=== PATIENT | female | born 1995 | race Caucasian/White ===

== ENCOUNTER → 2023-07-10 | Emergency (ER) | payer OTHER ==
[~2023-07-10] MED LIST: KETOROLAC 30 MG/ML INJ ONE
--- OUTSIDE RECORDS SUMMARY | 2023-07-10 16:27 | XMS REPORT | Continuity of Care Document ---
Author Name Unknown Address [address] [facility]. [address] [place] [address] [facility] thconnect Address [address] [facility] [address] [place] [address] Care Team Providers Care Lead Cargo Mover Name Role Phone PCP, PATIENT DOES NOT HAVE A Primary Care Physic edmar Unavailable JASS PARTIDA Attending Clinician Unavailable Jass Partida MD Attending Clinician [phone] Unknown, Attending Attending Clinician Unavailab le UNKNOWN, ATTENDING Attending Clinician Unavailab le Doctor Unassigned, [place] Attending Clinician U navailable Nancy Attending Clinician Unavailable [place] Attending Clinician UnavailMASON Luna Attending Clinician Unavailsteve Parmar LOOP CUTTERFifi Attending Clinician UnaKhalida Caban RN Attending Clinician Un available [facility] Attending Clinician UnaDia Suarez Attending Clinician [phone] DIA DEVRIES Attending Clinician Unavailable KENNETH LLAMAS Attending Clinician Unavailable Ashlyn Bennett MD Attending Clinician [phone] [email or web address] Admitting Clinician Unavailable [place] Admitting Clinician Duran gold Payers Payer Name Policy Type Policy Number Effective Date Expirati on Date Source [employer] [place] [facility] [id number] 2019 00:00:00 [facility] (EPO) [id number] Problems Condition Name Condition Details Condition Category Status Onset Date Resolution Date Last Treatment Date Treating Clinician Comments Source Bacterial pharyngiti s Bacterial pharyngiti s Disease Active 08-11 00:00: 00 [facility] Cough productive of purulent sputum Cough productive of purulent sputum Disease Active 08-11 00:00: 00 [facility] Diarrhea, unspecifie d type Diarrhea, unspecifie d type Disease Active 08-11 00:00: 00 [facility] Nexplanon removal Nexplanon removal Disease Active 11-23 00:00: 00 [facility] Other depression Other depression Disease Active 2016-05 00:00: 00 [facility] Drug induced insomnia Drug induced insomnia Disease Active 2016-05 00:00: 00 [facility] Allergies, Adverse Reactions, Alerts Allergy Name Allergy Type Status Severity Reaction(s) Onset Date Inactive Date Treating Clinician Comments Source iodine DA Active MO HIVES 2021-05 00:00: 00 [facility] codeine DA Active MO HIVES 2021-05 00:00: 00 [facility] CODEINE DRUG INGREDI Active Rash 08-12 00:00: 00 [facility] Codeine Propensi ty to adverse reaction s Active Rash 08-12 00:00: 00 [facility] NO KNOWN ALLERGIE S Drug Class Active [facility] Social History Social Habit Start Date Stop Date Quantity Comments Source Gender identity [facility] Sexual orientation U [facility] Alcohol intake 2023-01-31 00:00:00 2023-01-31 00:00:00 0 /d [facility] History of Social function 2019-08-13 00:00:00 2019-08-13 00:00:00 [facility] Tobacco use and exposure 2016-08-15 00:00:00 2016-08-15 00:00:00 Smokeless tobacco non-user [facility] Sex Assigned At 1995 00:00:00 1995 00:00:00 [facility] Smoking Status Start Date Stop Date Source Never smoked tobacco [facility] Medications Ordered Medication Name Filled Medication Name Start Date Stop Date Current Medication? Ordering Clinician Indication Dosage Frequency Signature (SIG) Comments Components Source ketorolac (TORADOL) injection 30 mg 01-31 19:45: 00 01-31 19:00 :00 No [id number] 30mg [facility] ondansetron (ZOFRAN-ODT ) disintegrat ing tablet 8 mg 01-31 19:45: 00 01-31 19:05 :00 No [id number] 8mg [facility] ondansetron (ZOFRAN-ODT ) disintegrat ing tablet 8 mg 01-31 19:45: 00 01-31 19:05 :00 No [id number] 8mg 8 mg, Oral, ONCE, 1 dose, On Fri01/31/23 at 1445, Routine [facility] ketorolac (TORADOL) injection 30 mg 01-31 19:45: 00 01-31 19:00 :00 No [id number] 30mg 30 mg, Intramuscu lar, ONCE, 1 dose, On Fri01/31/23 at 1445, Routine [facility] dextroamphe tamine-amph etamine (ADDERALL) 15 mg tablet 01-31 13:40: 53 Yes [facility] propranoloL 10 mg tablet 01-31 13:40: 53 Yes [facility] benzonatate (TESSALON PERLES) 100 mg capsule 08-12 00:00: 00 08-27 04:59 :00 No [id number] 100mg Take 1 capsule by mouth 3 (three) times daily for 14 days. [facility] benzonatate (TESSALON PERLES) 100 mg capsule 08-12 00:00: 00 08-27 04:59 :00 No [id number] 100mg Take 1 capsule by mouth 3 (three) times daily for 14 days. [facility] benzonatate (TESSALON PERLES) 100 mg capsule 08-12 00:00: 00 08-27 04:59 :00 No [id number] 100mg Take 1 capsule by mouth 3 (three) times daily for 14 days. [facility] azithromyci n 250 mg tablet 08-11 00:00: 00 Yes [id number] 250mg Take 1 tablet by mouth daily. Take 500 mg day 1, then 250 mg days 2 to 5. [facility] fluticasone propionate 50 mcg/actuati on nasal spray 08-11 00:00: 00 Yes [id number] 1{spray } Use 1 [place] in each nostril daily. [facility] acetaminoph en (TYLENOL 8 HOUR) 650 mg CR tablet 08-11 00:00: 00 Yes [id number] 650mg Take 1 tablet by mouth every 8 (eight) hours as needed for Pain. [facility] predniSONE 5 mg tablet 08-11 00:00: 00 Yes [id number] 5mg Take 1 tablet by mouth daily. [facility] azithromyci n 250 mg tablet 08-11 00:00: 00 Yes [id number] 250mg Take 1 tablet by mouth daily. Take 500 mg day 1, then 250 mg days 2 to 5. [facility] fluticasone propionate 50 mcg/actuati on nasal spray 08-11 00:00: 00 Yes [id number] 1{spray } Use 1 [place] in each nostril daily. [facility] acetaminoph en (TYLENOL 8 HOUR) 650 mg CR tablet 08-11 00:00: 00 Yes [id number] 650mg Take 1 tablet by mouth every 8 (eight) hours as needed for Pain. [facility] predniSONE 5 mg tablet 08-11 00:00: 00 Yes [id number] 5mg Take 1 tablet by mouth daily. [facility] azithromyci n 250 mg tablet 08-11 00:00: 00 Yes [id number] 250mg Take 1 tablet by mouth daily. Take 500 mg day 1, then 250 mg days 2 to 5. [facility] fluticasone propionate 50 mcg/actuati on nasal spray 08-11 00:00: 00 Yes [id number] 1{spray } Use 1 [place] in each nostril daily. [facility] acetaminoph en (TYLENOL 8 HOUR) 650 mg CR tablet 08-11 00:00: 00 Yes [id number] 650mg Take 1 tablet by mouth every 8 (eight) hours as needed for Pain. [facility] predniSONE 5 mg tablet 08-11 00:00: 00 Yes [id number] 5mg Take 1 tablet by mouth daily. [facility] azithromyci n 250 mg tablet 08-11 00:00: 00 Yes [id number] 250mg Take 1 tablet by mouth daily. Take 500 mg day 1, then 250 mg days 2 to 5. [facility] fluticasone propionate 50 mcg/actuati on nasal spray 08-11 00:00: 00 Yes [id number] 1{spray } Use 1 [place] in each nostril daily. [facility] acetaminoph en (TYLENOL 8 HOUR) 650 mg CR tablet 08-11 00:00: 00 Yes [id number] 650mg Take 1 tablet by mouth every 8 (eight) hours as needed for Pain. [facility] predniSONE 5 mg tablet 08-11 00:00: 00 Yes [id number] 5mg Take 1 tablet by mouth daily. [facility] azithromyci n 250 mg tablet 08-11 00:00: 00 Yes [id number] 250mg Take 1 tablet by mouth daily. Take 500 mg day 1, then 250 mg days 2 to 5. [facility] fluticasone propionate 50 mcg/actuati on nasal spray 08-11 00:00: 00 Yes [id number] 1{spray } Use 1 [place] in each nostril daily. [facility] acetaminoph en (TYLENOL 8 HOUR) 650 mg CR tablet 08-11 00:00: 00 Yes [id number] 650mg Take 1 tablet by mouth every 8 (eight) hours as needed for Pain. [facility] predniSONE 5 mg tablet 08-11 00:00: 00 Yes [id number] 5mg Take 1 tablet by mouth daily. [facility] azithromyci n 250 mg tablet 08-11 00:00: 01-31 00:00 :00 No [id number] 250mg Take 1 tablet by mouth daily. Take 500 mg day 1, then 250 mg days 2 to 5. [facility] fluticasone propionate 50 mcg/actuati on nasal spray 08-11 00:00: 00 01-31 00:00 :00 No [id number] 1{spray } Use 1 [place] in each nostril daily. [facility] acetaminoph en (TYLENOL 8 HOUR) 650 mg CR tablet 08-11 00:00: 00 01-31 00:00 :00 No [id number] 650mg Take 1 tablet by mouth every 8 (eight) hours as needed for Pain. [facility] predniSONE 5 mg tablet 08-11 00:00: 00 01-31 00:00 :00 No [id number] 5mg Take 1 tablet by mouth daily. [facility] sennosides (SENNO) 8.6 mg tablet 07-06 00:00: 00 Yes [id number] 8.6mg Take 1 tablet by mouth daily. [facility] Phenyleph-S hark Oil-Glyc-Pe t (HEMORRHOID AL) 0.25-3-12 % Crea 07-06 00:00: 00 Yes [id number] Insert into rectum daily. [facility] dibucaine (HEMORRHOID AL-ANALGESI C) 1 % ointment 07-06 00:00: 00 Yes [id number] Apply to area(s) 3 (three) times daily as needed for Pain. [facility] docusate 100 mg capsule 2020-0 2-18 00:00: 00 Yes [id number] 100mg Take 1 capsule by mouth daily. [facility] sennosides (SENNO) 8.6 mg tablet 2020-0 2-18 00:00: 00 Yes [id number] 8.6mg Take 1 tablet by mouth daily. [facility] Phenyleph-S hark Oil-Glyc-Pe t (HEMORRHOID AL) 0.25-3-12 % Crea 2020-0 2-18 00:00: 00 Yes [id number] Insert into rectum daily. [facility] dibucaine (HEMORRHOID AL-ANALGESI C) 1 % ointment 2020-0 2-18 00:00: 00 Yes [id number] Apply to area(s) 3 (three) times daily as needed for Pain. [facility] docusate 100 mg capsule 2019-0 2-18 00:00: 00 Yes [id number] 100mg Take 1 capsule by mouth daily. [facility] sennosides (SENNO) 8.6 mg tablet 2019-0 218 00:00: 00 Yes [id number] 8.6mg Take 1 tablet by mouth daily. [facility] Phenyleph-S hark Oil-Glyc-Pe t (HEMORRHOID AL) 0.25-3-12 % Crea 2020-0 2-18 00:00: 00 Yes [id number] Insert into rectum daily. [facility] Phenyleph-S hark Oil-Glyc-Pe t (HEMORRHOID AL) 0.25-3-12 % Crea 2020-0 2-18 00:00: 00 Yes [id number] Insert into rectum daily. [facility] dibucaine (HEMORRHOID AL-ANALGESI C) 1 % ointment 2020-0 2-18 00:00: 00 Yes [id number] Apply to area(s) 3 (three) times daily as needed for Pain. [facility] docusate 100 mg capsule 2019-0 2-18 00:00: 00 Yes [id number] 100mg Take 1 capsule by mouth daily. [facility] sennosides (SENNO) 8.6 mg tablet 2020-0 2-18 00:00: 00 Yes [id number] 8.6mg Take 1 tablet by mouth daily. [facility] dibucaine (HEMORRHOID AL-ANALGESI C) 1 % ointment 2020-0 2-18 00:00: 00 Yes [id number] Apply to area(s) 3 (three) times daily as needed for Pain. [facility] docusate 100 mg capsule 2020-0 2-18 00:00: 00 Yes [id number] 100mg Take 1 capsule by mouth daily. [facility] sennosides (SENNO) 8.6 mg tablet 2020-0 2-18 00:00: 00 Yes [id number] 8.6mg Take 1 tablet by mouth daily. [facility] Phenyleph-S hark Oil-Glyc-Pe t (HEMORRHOID AL) 0.25-3-12 % Crea 2020-0 2-18 00:00: 00 Yes [id number] Insert into rectum daily. [facility] dibucaine (HEMORRHOID AL-ANALGESI C) 1 % ointment 2020-0 2-18 00:00: 00 Yes [id number] Apply to area(s) 3 (three) times daily as needed for Pain. [facility] docusate 100 mg capsule 2020-0 2-18 00:00: 00 Yes [id number] 100mg Take 1 capsule by mouth daily. [facility] sennosides (SENNO) 8.6 mg tablet 2020-0 2-18 00:00: 00 Yes [id number] 8.6mg Take 1 tablet by mouth daily. [facility] Phenyleph-S hark Oil-Glyc-Pe t (HEMORRHOID AL) 0.25-3-12 % Crea 2020-0 2-18 00:00: 00 Yes [id number] Insert into rectum daily. [facility] dibucaine (HEMORRHOID AL-ANALGESI C) 1 % ointment 2020-0 2-18 00:00: 00 Yes [id number] Apply to area(s) 3 (three) times daily as needed for Pain. [facility] docusate 100 mg capsule 2020-0 2-18 00:00: 00 Yes [id number] 100mg Take 1 capsule by mouth daily. [facility] sennosides (SENNO) 8.6 mg tablet 2020-0 2-18 00:00: 00 Yes [id number] 8.6mg Take 1 tablet by mouth daily. [facility] Phenyleph-S hark Oil-Glyc-Pe t (HEMORRHOID AL) 0.25-3-12 % Crea 2020-0 2-18 00:00: 00 Yes [id number] Insert into rectum daily. [facility] dibucaine (HEMORRHOID AL-ANALGESI C) 1 % ointment 2020-0 2-18 00:00: 00 Yes [id number] Apply to area(s) 3 (three) times daily as needed for Pain. [facility] docusate 100 mg capsule 2020-0 2-18 00:00: 00 Yes [id number] 100mg Take 1 capsule by mouth daily. [facility] sennosides (SENNO) 8.6 mg tablet 2020-0 2-18 00:00: 00 Yes [id number] 8.6mg Take 1 tablet by mouth daily. [facility] Phenyleph-S hark Oil-Glyc-Pe t (HEMORRHOID AL) 0.25-3-12 % Crea 2020-0 218 00:00: 00 Yes [id number] Insert into rectum daily. [facility] dibucaine (HEMORRHOID AL-ANALGESI C) 1 % ointment 2020-0 2-18 00:00: 00 Yes [id number] Apply to area(s) 3 (three) times daily as needed for Pain. [facility] docusate 100 mg capsule 2020-0 2-18 00:00: 00 Yes [id number] 100mg Take 1 capsule by mouth daily. [facility] Phenyleph-S hark Oil-Glyc-Pe t (HEMORRHOID AL) 0.25-3-12 % Crea 2020-0 2-18 00:00: 00 01-31 00:00 :00 No [id number] Insert into rectum daily. [facility] dibucaine (HEMORRHOID AL-ANALGESI C) 1 % ointment 2020-0 2-18 00:00: 00 01-31 00:00 :00 No [id number] Apply to area(s) 3 (three) times daily as needed for Pain. [facility] docusate 100 mg capsule 07-06 00:00: 00 01-31 00:00 :00 No [id number] 100mg Take 1 capsule by mouth daily. [facility] sennosides (SENNO) 8.6 mg tablet 07-06 00:00: 00 01-31 00:00 :00 No [id number] 8.6mg Take 1 tablet by mouth daily. [facility] traZODONE 50 mg tablet 2016-05 00:00: 00 Yes [id number] 105 50mg Take 1 tablet by mouth at bedtime. [facility] traZODONE 50 mg tablet 2016-05 00:00: 00 Yes [id number] 105 50mg Take 1 tablet by mouth at bedtime. [facility] traZODONE 50 mg tablet 2016-05 00:00: 00 Yes [id number] 105 50mg Take 1 tablet by mouth at bedtime. [facility] traZODONE 50 mg tablet 2016-05 00:00: 00 Yes [id number] 105 50mg Take 1 tablet by mouth at bedtime. [facility] traZODONE 50 mg tablet 2016-05 00:00: 00 Yes [id number] 105 50mg Take 1 tablet by mouth at bedtime. [facility] traZODONE 50 mg tablet 2016-05 00:00: 00 Yes [id number] 105 50mg Take 1 tablet by mouth at bedtime. [facility] traZODONE 50 mg tablet 2016-05 00:00: 00 Yes [id number] 105 50mg Take 1 tablet by mouth at bedtime. [facility] traZODONE 50 mg tablet 2016-05 00:00: 00 Yes [id number] 105 50mg Take 1 tablet by mouth at bedtime. [facility] traZODONE 50 mg tablet 2016-05 00:00: 00 01-31 00:00 :00 No [id number] 105 50mg Take 1 tablet by mouth at bedtime. [facility] BUPROPION SR 100 mg SR tablet 2016-05 00:00: 00 Yes [id number] TAKE 1 TABLET BY MOUTH TWICE A DAY [facility] BUPROPION SR 100 mg SR tablet 2016-05 00:00: 00 Yes [id number] TAKE 1 TABLET BY MOUTH TWICE A DAY [facility] BUPROPION SR 100 mg SR tablet 2016-05 00:00: 00 Yes [id number] TAKE 1 TABLET BY MOUTH TWICE A DAY [facility] BUPROPION SR 100 mg SR tablet 2016-05 00:00: 00 Yes [id number] TAKE 1 TABLET BY MOUTH TWICE A DAY [facility] BUPROPION SR 100 mg SR tablet 2016-05 00:00: 00 Yes [id number] TAKE 1 TABLET BY MOUTH TWICE A DAY [facility] BUPROPION SR 100 mg SR tablet 2016-05 00:00: 00 Yes [id number] TAKE 1 TABLET BY MOUTH TWICE A DAY [facility] BUPROPION SR 100 mg SR tablet 2016-05 00:00: 00 Yes [id number] TAKE 1 TABLET BY MOUTH TWICE A DAY [facility] BUPROPION SR 100 mg SR tablet 2016-05 00:00: 00 Yes [id number] TAKE 1 TABLET BY MOUTH TWICE A DAY [facility] BUPROPION SR 100 mg SR tablet 2016-05 00:00: 00 01-31 00:00 :00 No [id number] TAKE 1 TABLET BY MOUTH TWICE A DAY [facility] hydrOXYzine 10 mg tablet 12-24 00:00: 00 Yes [id number] 10mg Take 1 tablet by mouth every 6 (six) hours. [facility] hydrOXYzine 10 mg tablet 12-24 00:00: 00 Yes [id number] 10mg Take 1 tablet by mouth every 6 (six) hours. [facility] hydrOXYzine 10 mg tablet 12-24 00:00: 00 Yes [id number] 10mg Take 1 tablet by mouth every 6 (six) hours. [facility] hydrOXYzine 10 mg tablet 12-24 00:00: 00 Yes [id number] 10mg Take 1 tablet by mouth every 6 (six) hours. [facility] hydrOXYzine 10 mg tablet 12-24 00:00: 00 Yes [id number] 10mg Take 1 tablet by mouth every 6 (six) hours. [facility] hydrOXYzine 10 mg tablet 12-24 00:00: 00 Yes [id number] 10mg Take 1 tablet by mouth every 6 (six) hours. [facility] hydrOXYzine 10 mg tablet 12-24 00:00: 00 Yes [id number] 10mg Take 1 tablet by mouth every 6 (six) hours. [facility] hydrOXYzine 10 mg tablet 12-24 00:00: 00 Yes [id number] 10mg Take 1 tablet by mouth every 6 (six) hours. [facility] hydrOXYzine 10 mg tablet 12-24 00:00: 00 01-31 00:00 :00 No [id number] 10mg Take 1 tablet by mouth every 6 (six) hours. [facility] albuterol 90 mcg/actuati on inhaler 07-02 00:00: 00 Yes 2{puff} Inhale 2 Puffs every 4 (four) hours as needed for Wheezing or Shortness of Breath. [facility] albuterol 90 mcg/actuati on inhaler 07-02 00:00: 00 Yes 2{puff} Inhale 2 Puffs every 4 (four) hours as needed for Wheezing or Shortness of Breath. [facility] albuterol 90 mcg/actuati on inhaler 07-02 00:00: 00 Yes 2{puff} Inhale 2 Puffs every 4 (four) hours as needed for Wheezing or Shortness of Breath. [facility] albuterol 90 mcg/actuati on inhaler 07-02 00:00: 00 Yes 2{puff} Inhale 2 Puffs every 4 (four) hours as needed for Wheezing or Shortness of Breath. [facility] albuterol 90 mcg/actuati on inhaler 07-02 00:00: 00 Yes 2{puff} Inhale 2 Puffs every 4 (four) hours as needed for Wheezing or Shortness of Breath. [facility] albuterol 90 mcg/actuati on inhaler 07-02 00:00: 00 Yes 2{puff} Inhale 2 Puffs every 4 (four) hours as needed for Wheezing or Shortness of Breath. [facility] albuterol 90 mcg/actuati on inhaler 07-02 00:00: 00 Yes 2{puff} Inhale 2 Puffs every 4 (four) hours as needed for Wheezing or Shortness of Breath. [facility] albuterol 90 mcg/actuati on inhaler 07-02 00:00: 00 Yes 2{puff} Inhale 2 Puffs every 4 (four) hours as needed for Wheezing or Shortness of Breath. [facility] albuterol 90 mcg/actuati on inhaler 07-02 00:00: 00 01-31 00:00 :00 No 2{puff} Inhale 2 Puffs every 4 (four) hours as needed for Wheezing or Shortness of Breath. [facility] hydrocortis one 25 mg suppository 06-20 00:00: 00 Yes 25mg Insert 1 Suppositor y into rectum 2 (two) times daily. [facility] hydrocortis one 25 mg suppository 06-20 00:00: 00 Yes 25mg Insert 1 Suppositor y into rectum 2 (two) times daily. [facility] hydrocortis one 25 mg suppository 06-20 00:00: 00 Yes 25mg Insert 1 Suppositor y into rectum 2 (two) times daily. [facility] cetirizine (ZYRTEC) 5 mg tablet 2015-05 00:00: 00 Yes [id number] 5mg Take 1 tablet by mouth daily. [facility] cetirizine (ZYRTEC) 5 mg tablet 2015-05 00:00: 00 Yes [id number] 5mg Take 1 tablet by mouth daily. [facility] cetirizine (ZYRTEC) 5 mg tablet 2015-05 00:00: 00 Yes [id number] 5mg Take 1 tablet by mouth daily. [facility] cetirizine (ZYRTEC) 5 mg tablet 2015-05 00:00: 00 Yes [id number] 5mg Take 1 tablet by mouth daily. [facility] cetirizine (ZYRTEC) 5 mg tablet 2015-05 00:00: 00 Yes [id number] 5mg Take 1 tablet by mouth daily. [facility] cetirizine (ZYRTEC) 5 mg tablet 2015-05 00:00: 00 Yes [id number] 5mg Take 1 tablet by mouth daily. [facility] cetirizine (ZYRTEC) 5 mg tablet 2015-05 00:00: 00 Yes [id number] 5mg Take 1 tablet by mouth daily. [facility] cetirizine (ZYRTEC) 5 mg tablet 2015-05 00:00: 00 Yes [id number] 5mg Take 1 tablet by mouth daily. [facility] cetirizine (ZYRTEC) 5 mg tablet 2015-05 00:00: 00 01-31 00:00 :00 No [id number] 5mg Take 1 tablet by mouth daily. [facility] Vital Signs Vital Name Observation Time Observation Value Comments S ourlucio Systolic blood pressure 2023-01-31 18:25:00 115 mm[Hg] [facility] Diastolic blood pressure 2023-01-31 18:25:00 80 mm[Hg] [facility] Heart rate 2023-01-31 18:25:00 120 /min [facility] Body temperature 2023-01-31 18:25:00 38.33 [facility] Respiratory rate 2023-01-31 18:25:00 17 /min [facility] Body height 2023-01-31 18:25:00 160 cm [facility] Body weight 2023-01-31 18:25:00 88.361 kg [facility] BMI 2023-01-31 18:25:00 34.51 kg/m2 [facility] Oxygen saturation in Arterial blood by Pulse oximetry 2023-01-31 18:25:00 98 /min [facility] Systolic blood pressure 2019-08-13 15:09:00 132 mm[Hg] [facility] Diastolic blood pressure 2019-08-13 15:09:00 83 mm[Hg] [facility] Heart rate 2019-08-13 15:09:00 91 /min [facility] Body temperature 2019-08-13 15:09:00 37 [facility] Body height 2019-08-13 15:09:00 160 cm [facility] Body weight 2019-08-13 15:09:00 72.122 kg [facility] BMI 2019-08-13 15:09:00 28.17 kg/m2 [facility] Oxygen saturation in Arterial blood by Pulse oximetry 2019-08-13 15:09:00 99 /min [facility] Procedures Procedure Date / Time Performed Performing Clinicia n Source POCT SARS-COV-2 ANTIGEN (BINAX NOW) 2023-01-31 18:27:00 Meli Car [facility] CONSENT/REFUSAL FOR DIAGNOSIS AND TREATMENT 2023-01-31 18:16:30 Doctor Unassigned, [place] [facility] CONSENT/REFUSAL FOR DIAGNOSIS AND TREATMENT 2019-08-13 05:01:00 Doctor Unassigned, [place] [facility] Encounters Start Date/Time End Date/Time Encounter Type Admission Type Attending Clinicians Care Facility Care Department Encounter ID Source 2023-01-31 13:20:00 2023-01-31 14:26:39 Outpatient R JASS PARTIDA [facility] [id number] [facility] 2023-01-31 13:20:00 2023-01-31 13:40:00 Urgent Care Jass Partida Unknown, Attending [facility] [id number] [facility] 2023-01-31 00:00:00 2023-01-31 00:00:00 Orders Only Doctor Unassigned, [place] [facility] 1..114 [id number] [facility] 2023-01-06 00:00:00 2023-01-06 00:00:00 Outpatient GC_GCBZW_Ro man_M [facility] [id number] [facility] 2022-05-02 05:52:00 2022-05-03 11:24:00 Inpatient Alpa Varma [facility].01 [id number] [facility] 2021-10-31 10:00:00 2021-10-31 10:00:00 Outpatient MASON WOLF [facility] [id number] [facility] 2020-09-29 00:00:00 2020-09-29 00:00:00 Case Management Fifi Parmar 1..114 [id number] [facility] 2019-08-15 00:00:00 2019-08-15 00:00:00 Telephone Khalida Cohen [facility] [facility] 1.114 350.1.13.10 4.2.7.2.686 [id number] [facility] 2019-08-13 09:55:22 2019-08-13 10:15:22 Urgent Care Pob1, Acute Care Clinic Dia Devries [facility] Office Building One 1.114 350.1.13.10 4.2.7.2.686 [id number] [facility] 2019-08-13 10:00:00 2019-08-13 10:00:00 Outpatient R DIA DEVRIES [facility] [id number] [facility] 2019-08-13 00:00:00 2019-08-13 00:00:00 Orders Only Doctor Unassigned, [place] [facility] 1.2.840.114 350.1.13.10 4.2.7.2.686 [id number] [facility] 2019-08-12 17:30:00 2019-08-12 17:30:00 Outpatient Tyree KERRINNAREMINGTONKENNETH RAMIREZ [facility] [id number] [facility] 2019-08-12 00:00:00 2019-08-12 00:00:00 Telephone Pob1, Acute Care Clinic [facility] One 1.2.840.114 350.1.13.10 4.2.7.2.686 [id number] [facility] 2019-07-06 00:00:00 2019-07-06 00:00:00 Patient Secure Msg Sabrina Ashlyn Juan [facility] Building 1.2.840.114 350.1.13.10 4.2.7.2.686 [id number] [facility] 2019-07-06 00:00:00 2019-07-06 00:00:00 Patient Secure Msg Doctor Unassigned, [place] [facility] Building 1.2.840.114 350.1.13.10 4.2.7.2.686 [id number] [facility] Results Test Description Test Time Test Comments Results Result Co [facility]41:00* Test Item Value Reference Range Interpretation Comme nts SURGICAL (test code = SR) R UN DATE: 05/06/22 [facility] PAGE 1 RUN TIME: 1740 Specimen Inquiry RUN USER: INTERFACE P ATIENT: VICENTE WATSON LOC: Aiyana U #: [id number] AGE/SX: 27/ ROOM: [facility] RE05/02/22REG DR: Alpa Meadows MD : 97 BED: 1 DIS: 05/03/22 STATUS: DIS Prince TLOC: SPEC #: [id number]:[id number] RECD: 05/02/22 STATUS: MARGUERITE REParveen #: [id number] RADHA: 05/02/221140 [facility] DR: Alpa Meadows MD ENTERED: 05/02/22 SP TYPE: SURGICAL OTHR DR: Tobin Dickson Jr, MD ORDERED: 19683, ANATOMIC SPEC, SPECIMEN TRACK COPIES TO: Tobin Dickson Jr, MD [address] [place] [address] Alpa Meadows MD [address] [facility] [address] [place] [address] PROCEDURES: 91449 (05/06/22-809) SPECIMEN TRACK (05/02/22-1235) TISSUES: A. FALLOPIAN TUBE NOS - RIGHT FINAL DIAGNOSIS Fallopian tube, right, lesion, salpingectomy:- Focal endometriosis- Fallopian tube wall, lumen and fimbriated end identified Comment: Suggest clinical correlation. GROSS DESCRIPTION Right fallopian tube. Received is fallopian tube segment with fimbriated end measuring 4.5cm in length and has a diameter of 1.1 cm. It is surrounded by fibrinous tissue. It issectioned and entirely submitted as A1-A3. Technical tissue processing and slide preparation performed at [facility],[place] [address] , [place] [address] Unless gross only, the diagnosis is based upon microscopic examination.Immunohistochemistr y: This test was developed and its performance characteristicsdetermined by this laboratory. It has not been approved nor does it need approval by the USFDA. Appropriate positive and negative controls are reviewed and judged to be acceptable.This laboratory is certified under the Clinical Laboratory Improvement Amendments (CLIA-88)as qualified to perform high complexity clinical laboratory testing. CONTINUED ON NEXT PAGE R UN DATE: 05/06/22 [facility] PAGE 2 RUN TIME: 1741 Specimen Inquiry RUN USER: INTERFACE S PEC #: 22:[facility]:[id number] PATIENT: VICENTE WATSON #[id number] (Continued) MICROSCOPIC DESCRIPTION Microscopic examination is performed on all specimens and the findings areincorporated into the final diagnosis. Please see diagnosis for findings. -------- Signed SIGNATURE ON ORIN McmillanRicardo 05/06/22 1741 END OF REPORT CBC W/AUTO [id number] 07:08:00* Test Item Value Reference Range Interpretation Comme nts WHITE BLOOD CELL (test code = WBC) 12.7 K/mm3 3.5-11.0 H RED BLOOD CELL (test code = RBC) 4.53 M/mm3 4.70-6.10 L HEMOGLOBIN (test code = HGB) 12.9 G/DL 10.4-14.9 N HEMATOCRIT (test code = HCT) 39.6 % 31.5-44.1 N MEAN CELL VOLUME (test code = MCV) 87.4 Fl 84.5-98.6 N MEAN CELL HGB (test code = MCH) 28.5 pg 27.0-34.2 N MEAN CELL HGB CONCETRATION (test code = MCHC) 32.6 G/DL 31.5-34.0 N RED CELL DISTRIBUTION WIDTH (test code = RDW) 13.2 SD 11.5-14.5 N PLATELET COUNT (test code = PLT) 185 K/mm3 150-450 N MEAN PLATELET VOLUME (test code = MPV) 11.60 fL 7.0-10.5 H NEUTROPHIL % (test code = NT%) 82.4 % 40-76 H IMMATURE GRANULOCYTE % (test code = IG%) 0.4 % 0.0-5.0 N LYMPHOCYTE % (test code = LY%) 10.9 % 20.5-51.1 L MONOCYTE % (test code = MO%) 6.0 % 1.7-9.3 N EOSINOPHIL % (test code = EO%) 0.1 % 0.0-6.0 N BASOPHIL % (test code = BA%) 0.2 % 0.0-2.0 N NUCLEATED RBC % (test code = NRBC%) 0.0 /100WBC% 0.0-1.0 N NEUTROPHIL # (test code = NT#) 10.5 K/mm3 1.8-7.6 H IMMATURE GRANULOCYTE # (test code = IG#) 0.05 x10 3/uL 0.00-0.03 H LYMPHOCYTE # (test code = LY#) 1.4 K/mm3 0.6-3.2 N MONOCYTE # (test code = MO#) 0.8 K/mm3 0.3-1.1 N EOSINOPHIL # (test code = EO#) 0.0 K/mm3 0.0-0.4 N BASOPHIL # (test code = BA#) 0.0 K/mm3 0.0-0.1 N NUCLEATED RBC # (test code = NRBC#) 0.0 K/mm3 0.0-0.1 N MANUAL DIFF REQUIRED (test code = MDIFF) NO DIFF/SCN CRITERIA SLIDE REVIEW CONSISTANT WITH AUTO DIFFERENTIAL. [id number] 06:13:00* Test Item Value Reference Range Interpretation Comme nts CREATININE (test code = CREAT) 0.7 MG/DL 0.6-1.0 N Comment: Stat creatinine if not already performedCOVID 19 INHOUSE [id number] 13:23:00* Test Item Value Reference Range Interpretation Comme nts COVID 19 INHOUSE AG (test code = [id number]) NEGATIVE Negative Per hide and skin fleshing machine operator , negative results should be treated aspresumptive and, if inconsistent with clinical signs andsymptoms or necessary for patient management, should betested with an alternative molecular assay. Negative resultsdo not preclude SARS-CoV-2 infection and should not be usedas the sole basis for patient management decisions. Negative results should be considered in the context of apatient's recent exposures, history, presence of clinicalsigns and symptoms consistent with COVID-19. URINALYSIS [id number] 13:16:00* Test Item Value Reference Range Interpretation Comme nts UA GLUCOSE DIPSTICK (test code = DGLUU) NEGATIVE mg/dL NEG UA BILIRUBIN DIPSTICK (test code = BILU) NEGATIVE mg/dL NEG UA KETONE DIPSTICK (test code = KETU) NEGATIVE mg/dL NEG UA SPECIFIC GRAVITY (test code = SGU) 1.015 SG 1.005-1.030 UA BLOOD DIPSTICK (test code = BEBETO) TRACE mg/DL NEG A UA PH DIPSTICK (test code = HODAN) 7.0 pH UNITS 5.0-7.0 UA PROTEIN DIPSTICK (test code = PROU) NEGATIVE mg/dL NEG UA UROBILINIOGEN DIPSTICK (test code = URO) 0.2 mg/dL <2.0 UA NITRITE DIPSTICK (test code = BARRY) NEGATIVE SCREEN NEG UA LEUKOCYTE ESTERASE DIPSTICK (test code = LEUU) NEGATIVE Leuk/mcL NEGATIVE Urine Specimen Type: Clean CatchUR HCG [id number] 13:16:00* Test Item Value Reference Range Interpretation Comme nts UR HCG QUAL (test code = HCGQLU) NEGATIVE NEGATIVE Urine Specimen Type: Clean Catch- XR CHEST 1 [id number] 13:12:00 [facility] 1995 Sex: F Name:VICENTE WATSONland : 1995 Age/S: 27 / F [address] [address] Unit #: [id number] Loc: [place] [address] Phys: David Mcdermott MD Acct: [id number] Dis Date: Status: PRE SDC PHONE #: [phone] Exam Date: 05/01/2022 1304 FAX #: Reason: PRE OP EXAMS: CPT: [id number] XR CHEST 1 V 08302 Fluoro Time: DAP (Gy m2): Air Kerma (mGy): Location Code: S17 EXAMINATION: - XR CHEST 1 V CLINICAL INDICATION: Female, 27 years year old with preoperative evaluation. COMPARISON: None. FINDINGS: Single view(s) of the chest submitted. Support Devices: None. Heart: Cardiac silhouette is normal in size. Mediastinum: Mediastinal contours are normal. Lungs: Pulmonary vessels are normal in size. Lungs are well aerated and clear. Pleura: No pleural effusion is identified. No pneumothorax is present. Bones: Visualized skeleton is intact. IMPRESSION: No acute cardiopulmonary disease. at 1312 Reported and signed by: Viet Maier M.D. CC: David Mcdermott MD; Alpa Meadows MD PAGE 1 Signed Report Name: [place]ENTE WATSONland : 1995 Age/S: 27 / F [id number] [address] Unit #: [id number] Loc: [place] [address] Phys: David Mcdermott MD Acct: [id number] Dis Date: Status: PRE SDC PHONE #: [phone] Exam Date: 05/01/2022 1303 FAX #: Reason: PRE OP EXAMS: CPT: [id number] XR CHEST 1 V 06376 Fluoro Time: DAP (Gy m2): Air Kerma (mGy): (Continued) Technologist: CAROLINA SUTTON Trnscb Date/Time: 05/01/2022 (1312) [id number] Orig Print D/T: S: 05/01/2022 (1315) PAGE 2 Signed ReportCBC W/AUTO [id number] 13:07:00* Test Item Value Reference Range Interpretation Comme nts WHITE BLOOD CELL (test code = WBC) 7.6 K/mm3 3.5-11.0 N RED BLOOD CELL (test code = RBC) 4.71 M/mm3 4.70-6.10 N HEMOGLOBIN (test code = HGB) 13.4 G/DL 10.4-14.9 N HEMATOCRIT (test code = HCT) 39.8 % 31.5-44.1 N MEAN CELL VOLUME (test code = MCV) 84.5 Fl 84.5-98.6 N MEAN CELL HGB (test code = MCH) 28.5 pg 27.0-34.2 N MEAN CELL HGB CONCETRATION (test code = MCHC) 33.7 G/DL 31.5-34.0 N RED CELL DISTRIBUTION WIDTH (test code = RDW) 13.1 SD 11.5-14.5 N PLATELET COUNT (test code = PLT) 263 K/mm3 150-450 N MEAN PLATELET VOLUME (test c ode = MPV) 11.10 fL 7.0-10.5 H NEUTROPHIL % (test code = NT%) 59.1 % 40-76 N IMMATURE GRANULOCYTE % (test code = IG%) 0.3 % 0.0-5.0 N LYMPHOCYTE % (test code = LY%) 31.3 % 20.5-51.1 N MONOCYTE % (test code = MO%) 7.3 % 1.7-9.3 N EOSINOPHIL % (test code = EO%) 1.7 % 0.0-6.0 N BASOPHIL % (test code = BA%) 0.3 % 0.0-2.0 N NUCLEATED RBC % (test code = NRBC%) 0.0 /100WBC% 0.0-1.0 N NEUTROPHIL # (test code = NT#) 4.5 K/mm3 1.8-7.6 N IMMATURE GRANULOCYTE # (test code = IG#) 0.02 x10 3/uL 0.00-0.03 N LYMPHOCYTE # (test code = LY#) 2.4 K/mm3 0.6-3.2 N MONOCYTE # (test code = MO#) 0.6 K/mm3 0.3-1.1 N EOSINOPHIL # (test code = EO#) 0.1 K/mm3 0.0-0.4 N BASOPHIL # (test code = BA#) 0.0 K/mm3 0.0-0.1 N NUCLEATED RBC # (test code = NRBC#) 0.0 K/mm3 0.0-0.1 N MANUAL DIFF REQUIRED (test c ode = MDIFF) NO DIFF/SCN CRITERIA Notes Date/Time Note Provider Source 2022-05-09 17:00:00 [id number] [id number]/ sVxZj9ZQ9CZDAP9iLcuNi1rnzpy0894-56-61C19:00:66802 2-[address] [address] PATIENT NAME: VICENTE WATSON ADMIT DATE: 05/02/22ACCOUNT NO: [id number] ROOM NO: [facility] AGE: 27 REPORT TYPE: DISCHARGE SUMMARY SEX: F ADMITTING PHYSICIAN: Alpa Meadows MD ATTENDING PHYSICIAN: Alpa Meadows MD ADMISSION DATE: 05/02/2022 05:52:00DISCHARGE DATE: 05/03/2022 11:24:00 ADMITTING DIAGNOSIS: Pelvic pain, dysmenorrhea, abnormal bleeding. POSTOPERATIVE DIAGNOSIS: Pelvic pain, dysmenorrhea, abnormal bleeding and significant intra-abdominal adhesions and same diagnoses. The patient was kept overnight after an extensive lysis of adhesions. Please refer to her operative note on 05/02/2022. She was electively admitted for thisprocedure. She had bilateral chromotubation, right salpingectomy. She had a very superficial monopolar small bowel incident while lysis of adhesions was done and so this was oversewn [facility] Please refer to her consultation note and the operative note for the rest of the details. The patient was sent to the floor on 05/02/2022 postoperatively. On 05/03/2022 in the morning, she was tolerating diet, ambulating, slight blurry vision, which was explained from her scopolamine patch. She was able to empty her bladder and passing flatus, had no urinary symptoms or abdominal distention. On examination, abdomen soft, nondistended, minimally tender, appropriate to herpostoperative day and incisions are clean, dry and intact. The patient was discharged after Dr. Lyle had seen her and consulted with her. This was to establish care, which was started as an intraoperative consultation with her. The patient was given very strict instructions about postoperative complicationsand given the office number to contact at any time of the day and any day of theweek. Narcotic for pain control, ibuprofen for pain control as well restarting home meds. Postoperative followup appointment was also made. She was discharged home after she tolerated her diet and pain was under control. CORRECTED 05/14/2022 [id number] Dictated By: Alpa Meadows MD Date Dictated: 05/09/2022 17:00:45Date Transcribed: 05/09/2022 20:06:17THOMAS/Zack #: [id number] PATIENT NAME: VICENTE WATSON Receipt ID: [id number] by Alpa Meadows MD On 05/16/2022 06:05:51 PM at 0605 PATIENT NAME: VICENTE WATSON nskjwqz0893-47-38Z07:06:00L.[id number] ilable for patient zdleCISVKOZKCQUBGY7817-99-14A57:06:31 [facility] 2022-05-03 09:21:00 [id number] sOgyADmMgKy+IFIWCa/2PT+kj1vD2 1glWu6/nChCwgXyQVFAQysL3En/8877-65-26A04:21:00 [facility] Progress NoteREPORT#:[id number] REPORT STATUS: SignedDATE:05/03/22 TIME:920 PATIENT: VICENTE WATSON UNIT #: [id number]#: [id number] [facility] AGE: 27 SEX: F ATTEND: Alpa Meadows AUTHOR: Viviana Lyle MD * ALL edits or amendments must be made on the electronic/computer document * SubjectivePatient reports:Yes: tolerating diet. No: abdominal pain, nausea, vomiting. Objective GeneralVS/I O:Last Documented: Result Date Time Pulse Ox 100 05/03 0658 B/P 119/74 05/03 0658 B/P Mean 88.7 05/03 06 O2 Delivery Room air 05/03 0658 Temp 98.8 05/03 0658 Pulse 75 05/03 0658 Resp 15 05/03 0658 O2 Flow Rate 4 05/02 1230 Vital Signs Date Temp Pulse Resp B/P B/P Mean Pulse Ox FiO2 05/02-05/03 97.1-98.8 68-95 15-18 109-128/35-75 78.2-88.7 97-100 PATIENT WEIGHT: Weight (lb): 180Weight (oz): 6.04Weight (kg): 81.818 Medications:Active Meds + DC'd Last 24 HrsDocusate Sodium (COLACE) 100 MG BID PO Docusate Sodium (COLACE) 100 MG BID PO (DC) Pregabalin (LYRICA) 75 MG BID PO (DC) Pregabalin (LYRICA) 75 MG BID PO Hydrocodone Bitart/Acetaminophen (NORCO 10/325) 1 TAB ONCE PO (CKD) Ibuprofen (ADVIL) 600 MG Q6H PRN PRN PO Acetaminophen (TYLENOL EXTRA STRENGTH) 1,000 MG PREOP ONCE PO (DC) Celecoxib (CeleBREX) 200 MG PREOP ONCE PO (DC) Gabapentin (NEURONTIN) 200 MG PREOP ONCE PO (DC) Celecoxib (CeleBREX) 200 MG 0900,2100 PO (DC) Acetaminophen (TYLENOL EXTRA STRENGTH) 1,000 MG Q6H PO (DC) Cefoxitin Sodium (MEFOXIN) 1 GM Q8H IV (DC) Sterile Water (WATER FOR INJECTION) 10 MLLactated Ringer's (LACTATED RINGERS) 1,000 ML .[id number] IV Lactated Ringer's (LACTATED RINGERS) 1,000 ML ASDIR IV (DC) Ondansetron HCl (ZOFRAN) 8 MG Q8H PRN PRN PO Ondansetron HCl (ZOFRAN) 8 MG Q8H PRN PRN IV Celecoxib (CeleBREX) 200 MG 0900,2100 PO Lactated Ringer's (LACTATED RINGERS) 1,000 ML ASDIR IV (DC) Ondansetron HCl (ZOFRAN) 8 MG Q8H PRN PRN PO (DC) Ondansetron HCl (ZOFRAN) 8 MG Q8H PRN PRN IV (DC) Acetaminophen (TYLENOL EXTRA STRENGTH) 1,000 MG PREOP ONCE PO (DC) Celecoxib (CeleBREX) 200 MG PREOP ONCE PO (DC) Gabapentin (NEURONTIN) 200 MG PREOP ONCE PO (DC) Scopolamine HBr (TRANSDERM-SCOP) 1.5 MG ONCE TRANSDERM (DC) Hydrocodone Bitart/Acetaminophen (NORCO 5/325) 1 TAB PACU ONCE PRN PO (DC) Hydrocodone Bitart/Acetaminophen (NORCO 10/325) 1 TAB PACU ONCE PRN PO (DC) Hydromorphone HCl (DILAUDID) 0.5 MG PACU Q10MIN PRN PRN IV (DC) Labetalol HCl (TRANDATE) 5 MG PACU Q10MIN PRN PRN IV (DC) Meperidine HCl (DEMEROL) 12.5 MG PACU ONCE PRN IV (DC) Ondansetron HCl (ZOFRAN) 4 MG PACU ONCE PRN IV (DC) Physical ExamGeneral appearance: alert, awake, orientedCardiovascular: normal S1/X2Zunbalsnvfp: clear to auscultationAbdomen: non-tender, normal bowel sounds, soft, no guarding, no rebound, incisions are clean, dry, and intactExtremities: no edema ResultsFindings/Data:Laboratory Tests 05/03/22544:[Embedded Image Not Available]Laboratory Tests 05/03 545 Chemistry Creatinine (0.6 - 1.0 MG/DL) 0.7 Laboratory Tests 05/03 545 Hematology WBC (3.5 - 11.0 K/mm3) 12.7 H RBC (4.70 - 6.10 M/mm3) 4.53 L Hgb (10.4 - 14.9 G/DL) 12.9 Hct (31.5 - 44.1 %) 39.6 MCV (84.5 - 98.6 Fl) 87.4 MCH (27.0 - 34.2 pg) 28.5 MCHC (31.5 - 34.0 G/DL) 32.6 RDW (11.5 - 14.5 SD) 13.2 Plt Count (150 - 450 K/mm3) 185 MPV (7.0 - 10.5 fL) 11.60 H Neut % (Auto) (40 - 76 %) 82.4 H Lymph % (Auto) (20.5 - 51.1 %) 10.9 L [place] % (Auto) (1.7 - 9.3 %) 6.0 Eos % (Auto) (0.0 - 6.0 %) 0.1 Baso % (Auto) (0.0 - 2.0 %) 0.2 Neut # (Auto) (1.8 - 7.6 K/mm3) 10.5 H Lymph # (Auto) (0.6 - 3.2 K/mm3) 1.4 [place] # (Auto) (0.3 - 1.1 K/mm3) 0.8 Eos # (Auto) (0.0 - 0.4 K/mm3) 0.0 Baso # (Auto) (0.0 - 0.1 K/mm3) 0.0 Abs Immat Gran (auto) (0.00 - 0.03 x10 3/uL) 0.05 H Add Manual Diff (CRITERIA DIFF/SCN) NO Immature Gran % (0.0 - 5.0 %) 0.4 Nucleated RBC % (0.0 - 1.0 /100WBC%) 0.0 Diagnosis, Assessment PlanProblem List/A P: 1. Endometriosis 2. Serosal tear of small intestine Free Text A P:Patient doing well postoperatively. She has benign abdominal exam. Discharge plans as per PAPER BOX MAKER. No further general surgical intervention required. Will sign off. at 0924 RPT #: [id number] OF REPORT PRProgress xqus9681-77-33W26:21:00L.CMIB11271134-6092UQMspua able for patient ityiNZMEPPXQJQUTGV7166-49-79P22:24:24 [facility] 2022-05-02 22:40:00 [id number]+5s dvWTm7Tlq+9EJmE8v4hyP08h8Amic N2H8PdGWqeGRae8B0h9mGv285ZP7061-42-42A97:40:74225 6-0009 [facility] [address] [place] [address] PATIENT NAME: VICENTE WATSON ADMIT DATE: 05/02/22ACCOUNT NO: [id number] ROOM NO: [facility] AGE: 27 REPORT TYPE: CONSULTATION SEX: F ADMITTING PHYSICIAN: Alpa Meadows MD ATTENDING PHYSICIAN: Alpa Meadows MD CONSULTATION DATE: 05/02/2022 REASON FOR CONSULTATION: Postoperative evaluation. HISTORY OF PRESENT ILLNESS: The patient is a 27-year-old female who came in forelective gynecological procedure. Dr. Meadows performed a diagnostic hysteroscopy, robotic-assisted laparoscopic lysis of adhesions, right salpingectomy, left salpingolysis and right ovariolysis with chromotubation. During her procedure, she had a superficial serosal tear. She had called duringthe surgery and I advised her surgical management. I recommended that she oversew the area. She had asked me to just follow up with the patient postop. PAST MEDICAL HISTORY: Significant for endometriosis. PAST SURGICAL HISTORY: As above. MEDICATIONS: Reviewed. ALLERGIES: IODINE AND CODEINE. SOCIAL HISTORY: The patient denies any drug, alcohol, or tobacco use. FAMILY HISTORY: Noncontributory. REVIEW OF SYSTEMS: Significant for just postoperative pain. PHYSICAL EXAMINATION:GENERAL: The patient appears in no acute distress.VITAL SIGNS: Show temperature 98.4, pulse 95, respirations 16, blood pressure 117/75.HEENT: Normocephalic. Atraumatic. Extraocular movements intact.CARDIOVASCULAR: S1, S2.LUNGS: Clear to auscultation.ABDOMEN: Soft, nondistended, nontender. Incisions are clean, dry and intact. No active bleeding.EXTREMITIES: No edema, clubbing, cyanosis. IMPRESSION:1. Denuded small bowel.2. Endometriosis.3. Status post gynecologic procedure. PATIENT NAME: VICENTE WATSON PLAN: The patient clinically appears to have benign abdomen. She is resting comfortably in bed with no evidence of acute surgical abdomen. Continue supportive care as per PAPER BOX [employer]KER. Dictated By: Viviana Lyle MD Date Dictated: 05/02/2022 22:40:03Date Transcribed: 05/03/2022 05:35:13EO/Joel #: [id number] ID: [id number] by Viviana Lyle MD On 05/21/2022 10:30:34 AM at 1030 PATIENT NAME: VICENTE WATSON :35:00L.WA [id number] for patient wotiICMSCKSXARIGNG4435-08-92A18:31:11 [facility] 2022-05-02 15:28:00 [id number] bZ5pQ84epzOytuEtTEx0OhiirbMXd +h82RflIOjBvrdWI3PF6ZNdPiR42797-09-02H90:28:46170 6-0005 [facility] [address] [place] [address] PATIENT NAME: VICENTE WATSON ADMIT DATE: 05/02/22ACCOUNT NO: [id number] ROOM NO: L.S212 AGE: 27 REPORT TYPE: OPERATIVE REPORT SEX: F ADMITTING PHYSICIAN: Alpa Meadows MD ATTENDING PHYSICIAN: Alpa Meadows MD OPERATION DATE: 05/02/2022 PREOPERATIVE DIAGNOSES: Pelvic pain and irregular periods. POSTOPERATIVE DIAGNOSES: Pelvic pain and irregular periods. Bilateralhydrosalpinges, significant large and small bowel adhesions, appendiceal andcecal adhesions as well as bilateral tubo-ovarian adhesions to the sidewall. PROCEDURE PERFORMED:1. Diagnostic hysteroscopy.2. Diagnostic robotic-assisted laparoscopy.3. Extensive lysis of small and large bowel adhesions which took at least minutes, omental adhesions as well.4. Right salpingectomy.5. Left salpingolysis.6. Right ovariolysis.7. Chromotubation. SURGEON: Alpa Meadows MD. WELLNESS INSTRUCTOR: Jeremi Padilla. ANESTHESIA: FINDINGS: Serosal small bowel injury that was repaired from lysis of adhesions.Bilateral hydrosalpinges were noted and the left was drained as the tube wasoccluded after chromotubation. Once it was open, the tube was able to beflushed; however, it was distorted and significantly adhered in the rightlateral sidewall and the adhesions between the uteroovarian ligament and theround ligament. Then, the uterus appeared to be normal on hysteroscopy.Ovaries remained intact. The appendix was adhered on the posterior broadligament, scarred down in the pelvis just right above the uterosacral ligament.Cecum was adhered to the right lateral pelvic sidewall all the way from thelevel of the pelvic brim to the level of the appendix and the posterior broadligament near the uterosacral. This was noted. Perihepatic adhesions were alsopresent from the omentum to the anterior abdominal wall. Essentially, adhesionsstarted at the perihepatic level of the upper abdomen and all the way down intothe pelvis. The sigmoid colon was adhered to the posterior wall of the uterus.Cul-de-sac obliterated. COMPLICATIONS: Superficial serosal injury of the small bowel oversewn with a 3-0Vicryl after consultation with general surgeon. PATIENT NAME: VICENTE WATSON ESTIMATED BLOOD LOSS: Minimal. SPECIMENS: Right tube. URINE OUTPUT: 100. APPROACH: Robotic laparoscopic. WOUND CLASS: Clean. ANTIBIOTICS: 2 grams of Ancef were given at the beginning of the case. COUNTS: Correct. INDICATIONS FOR OPERATION: The patient is a 27-year-old 1, para 1, oneC-section that was an emergency due to shoulder dystocia. Postoperative coursecomplicated and protracted with multiple abdominal abscesses that had to bedrained laparoscopically. The patient has been treated conservatively for herpain. There is a suspicion of endometriosis or adhesions and so she was offeredthe option of medical treatment versus surgical diagnostic. She also isdesiring fertility in the future, so we discussed about chromotubation patency of the tubes. After she was here in the preoperative area, we discussed about all her findings of adnexal masses over the past one and a half year. Shecompletely understands the possibility of tubal occlusion either unilateral orbilateral. This was explained to the and the patient in the preop againand if there was occlusion and distortion of one of the tubes that they would beremoved, but if the tubes are open on both sides, they would be left alone. Ifthere was occlusion on both sides, I would at least attempt to open the tube andleave the tube intact for later evaluation and removal if risk of ectopicpregnancy and a distorted tube was discussed with the patient. We alsodiscussed that given the past significant history of all the complications and acomplicated postoperative course after her delivery, that bowel adhesions andrisk of bowel injury would be higher than an average laparoscopy for herindication. She understood this and she was consented. The abdomen, vulva, vagina, and perineum prepped and draped in a sterilefashion. ChloraPrep for the abdomen and Betadine for the bottom prep. Speculumplaced to expose the cervix. Anterior lip was grasped with Allis clamps anddiagnostic hysteroscopy was performed with the camera traversing into theuterine cavity under direct vision. Cavity was undistorted. No intracavitarymasses. The scope was pulled out. Uterine manipulator introduced. Brian placedand drained the urine. This area was draped. 15 cm from the suprapubic area, fascia was opened with scalpel and tagged with 0Vicryl sutures. The peritoneum entered sharply. Next, a retractor placed tointroduce the Leydi, which was robotic Leydi. After visualizing the abdominal cavity, it was very clear that there was novision to even place any other ports other than left lateral port, so 10 cm fromthe umbilical port. Robotic trocar was introduced without any problems afterinjecting the fascia and the skin with Marcaine. Then, once this was introducedand took down the adhesions from the left upper quadrant, perihepatic adhesionswere also taken down in order to free this area. Then, after infiltrating with PATIENT NAME: VICENTE WATSON Marcaine, a first 5 port was placed. Then, using this area, adhesions weretaken down from the anterior abdominal wall to the omentum and the right upperquadrant and right lateral area and the left lateral area. Push-spread techniquewas used to open up and sharp dissection was performed mostly to remove theadhesions. Once the omentum was taken down, the abdominal wall was clear. Pelvic adhesionswere also addressed. Most of the adhesions were taken down off the omentum tothe anterior abdominal wall all the way down to the lower pelvic area and allthe way laterally to the sidewalls carefully making sure that bowel was notinjured. Then, the 8 trocar of the robot was placed in the right lateral less than 10 cmfrom the umbilical port. The robot was docked, targeted on attempt to visualizethe uterus, could not visualize it as the bowel was attached to the uterus. A fenestrated bipolar and monopolar scissors were placed through arms 2 and 4and case was started after all the arms were fixed in place and ports werebarbed and positioning was all optimal at 20 degrees Trendelenburg. I went to the console, started taking down the adhesions down. All sharpdissection was performed all the way to the lateral vicente first taking down thesmall bowel from the anterior abdominal wall on the right side, then taking itdown all the way to the level of the bladder, then the uterus was lifted up andthe adhesions were taken down sharply dissecting the small bowel and colon away the uterine wall, staying close to the uterine wall. Once all this wasdone on the right side, it was very clear that the tube was attached to theright lateral wall and then incorporated into the peritoneum. Once the bowel was clear, cecum could be seen bottom of the IP ligament, so I carefully took down the adhesions to open up the right lateral wall to release the tube. Once, sharp dissection was performed, occasional monopolar cautery was used for hemostasis. Once all this was done and the tube was released partially, then I could see the lateral wall. Careful dissection was performed with a push-spread technique, protecting the external iliac vessels entering theperitoneum and staying intraperitoneal. Once IP ligament was visualized, thetube and the round ligament were on the peritoneal surface and thenbetween the tube and the uteroovarian ligament, dissection was performed aswell. Then, the LigaSure was used through my assist port to take down the tube and the LigaSure. Once all the tube was dissected and was excised, it wasleft in the anterior cul-de-sac. On to the other side, adhesions were taken coming down to the lateral wall hereas I was taking the small bowel down. There was one area that was bleeding andhad to be cauterized and the effect of the cautery touched the serosa of thesmall bowel that was attached and loops to the pelvic brim on the left sidewall. The rest of the bowel was taken down after changing the fenestrated grasper toa ProGrasp that was appropriate for the bowel retraction. This was done even before once the bowel dissection was started. Once all the bowel was taken down, call was made to Dr. Lyle for consultation.No other general surgeon was available locally. Continued to proceed with all mysurgery, taking down the bowel adhesions of the sigmoid colon to the posteriorwall of the uterus, systematically opening up, pushing and spreading and making PATIENT NAME: VICENTE WATSON spaces to take sharply all the bowel down of tissue that appeared to be a loopof bowel. However, once dissection was carefully done around it withoutinjuring it, this was realized to be the appendix. This was post-attached tothe posterior broad ligament, medial to the ureter and the cecum was seenplastered to the pelvic sidewall. So, carefully the appendix was released fromits adhesions to the posterior wall of the uterus. Once this was nicely clearedup, it was confirmed that it had its continuity with the cecum. This would be atask for another day for a general surgeon and this was left alone. The rest ofthe bowel and the cul-de-sac was all released for better visualization. Then, Icame on to the left side of the tube. The tube was released from the lateralsidewalls. Chromotubation was performed and there was occlusion, so as I couldsee the bulge of the hydrosalpinx and went ahead and then opened the tube andallowed it to drain. The fimbriated end was picked up from the area between and the IP. This was slowly released and then once chromotubation was done, blue dye was coming out of it. It was difficult to open up the entire ovary and the fallopian tube and , but this was done as best as possible. The tube did not appear to have good; however, as per discussion preoperatively this was and would be addressed later postoperatively. Once all the procedure was performed, the availability of the general surgeon locally was not feasible and so I went ahead and used FaceTime too and that it was very appropriate for used. No evidence of any bowel contents. There was a very superficial serosal monopolar arc and so I went ahead and closed with 3- 0 Vicryl simple imbricating sutures along the lines of the smooth muscle outer layer and narrowing of the bowel at this point. Once these were tied down carefully in a tension-free manner, but with good seal bringing the good tissue together. Thorough irrigation, suction was performed. No evidence of any bowel contents even after this was done, after thorough irrigation, suction was performed and the robot was undocked. All the trocars were removed under direct vision. The tube was removed through the umbilical port using an EndoCatch bag. These were hemostatic and safe. Case was completed. The fascia at the umbilicus closed with 0 Vicryl sutures tagged. The edges tied to each other and simple 3-0 Vicryl sutures at all skin incisions and Dermabond placed. Brian and manipulator were removed and she was recovered from anesthesia and taken to the PACU in stable condition. Instrument, needle and sponge counts were correct. EBL minimal. The patient's was debriefed about all her findings , should be staying overnight for observation with manipulation of the bowel, concern for nausea and pain control and observation would be preferable. was agreeable to this. Dr. Lyle was on consultation. She will need Reproductive, Endocrinology and Fertility consultation about herleft tube. General surgery consult in about 3 months for removal of herappendix. Maybe at the same time, we could also perform a left salpingectomy ifthat is what the patient preferred. So as to avoid many procedures, IVF could keila very good option for her, but this would be according to the patient's requestafter her consultation with a fertility doctor. Dictated By: Alpa Meadows MD Date Dictated: 05/02/2022 15:28:01Date Transcribed: 05/03/2022 02:02:14THOMAS/NADER/Morenita #: [id number] ID: [id number] PATIENT NAME: VICENTE WATSON Authenticated and Edited by Alpa Meadows MD On 05/09/22 4:53:25 PM at 0455 PATIENT NAME: VICENTE WATSON [id number]:02:00L.[id number] lable for patient [id number]:55:43 [facility] 2022-05-02 13:01:00 [id number]:01:00 [facility] WorthBrief Op NoteREPORT#:[id number] REPORT STATUS: SignedDATE:05/02/22 TIME:1301 PATIENT: VICENTE WATSON UNIT #: [id number]#: [id number] ROOM/BED:: 97 AGE: 27 SEX: F ATTEND: Alpa Meadows [facility] AUTHOR: Alpa Meadows MD * ALL edits or amendments must be made on the electronic/computer document * Op/Inv Proc Note - BriefPre-procedure diagnosis:pelvic pain, irregular periodsPost-procedure diagnosis: same and bilateral hydrosalpinges, significant small and large bowel and appendiceal and cecal adhesionsProcedures performed:diag hysteroscopy, diag robotic laparoscopy, extensive bowel (small and large) SANGITA, omental adhesions, right salpingectomy, left salpingolysis and right ovariolysis, chromotubationPrimary Surgeon:Alisistant(s): jeremi padillaAnesthesia: general anesthesiaFindings:superficial serosal small bowel injury repair, from SANGITA, bilateral hydrosalpinges, left drained and opened, normal uterusovaries intact, appendix in the posterior right pelvis, cecum adhered to the right lateral pelvic brim sideno endometriosisComplications: suprficial serosal injury of small bowel overswen after consultation with gen surgeonEstimated blood loss in ml's: 50Specimens removed/altered: rt tubeUrine output:100Approach: laparoscopic, robotWound class: cleanDisposition: MEDSURGCounts: Sponge count: correct Instrument count: correct Needle count: correct at 1312 RPT #: [id number] OF REPORT OPOperative [id number]:01:00L.[id number] ilable for patient [id number]:12:39 [facility]
[2023-07-10 17:41] LABS: Specific Gravity 1.026 (1.005-1.030)
[2023-07-10 17:43] LABS: Absolute Lymphocytes (CBC) 3.2 K/uL (0.7-4.9); Hematocrit 41.4 % (36.0-45.0); Lymphocytes % 30.2 % (15.3-44.8); MCV 83.3 fL (80-100); Platelets 269 thou/uL (152-406); RBC Red Blood Cell Count 4.97 M/uL (3.86-4.86)
[2023-07-10 17:44] LABS: Urine Bacteria <20 /HPF (<20); Urine Mucus 1+ /HPF (None Seen); Urine RBC <5 /HPF (None Seen)
[2023-07-10 17:44] LABS: Protime INR 1.19
[2023-07-10 17:50] LABS: Barbiturates NEGATIVE (NEGATIVE); Benzodiazepines NEGATIVE (NEGATIVE); Cocaine NEGATIVE (NEGATIVE); METHAMPHETAM POSITIVE (NEGATIVE); Methadone NEGATIVE (NEGATIVE); Opiates NEGATIVE (NEGATIVE); Phencyclidine NEGATIVE (NEGATIVE); THC Cannibis NEGATIVE (NEGATIVE)
[2023-07-10 17:58] LABS: ALT/SGPT 26 U/L (13-56); AST/SGOT 8 U/L (15-37); Albumin 3.8 g/dL (3.4-5.0); Alkaline Phosphatase 73 U/L (45-117); BUN Blood Urea Nitrogen 14 mg/dL (7-18); Bicarbonate 26 mEq/L (21-32); Bilirubin Direct 0.2 mg/dL (0-0.2); Bilirubin Indirect, Calculated 0.2 mg/dL (0.2-0.8); Bilirubin Total 0.4 mg/dL (0.2-1.0); Glomerular Filtration Rate 82 ml/min (=/>90); Glucose Level 86 mg/dL (74-106); Magnesium 2.1 mg/dL (1.6-2.4); Potassium 3.8 mEq/L (3.5-5.1); Protein, Total 8.6 g/dL (6.4-8.2); Sodium Level 137 mEq/L (136-145)
[2023-07-10 18:01] LABS: Troponin High Sensitivity < 3.0 pg/mL (<58.9)
--- NOTE | 2023-07-10 18:24 | RAD REPORT ---
EXAM DESCRIPTION: Jordyn Single View07/10/2023 5:50 pm CLINICAL HISTORY: CHEST PAIN COMPARISON: No comparisons TECHNIQUE: Portable AP view of the chest. FINDINGS: The lungs are clear. No pneumothorax or effusion. The cardiomediastinal contours are unre markable. IMPRESSION: No acute cardiopulmonary process.
--- NOTE | 2023-07-10 19:47 | ER ---
Nurse's Notes [facility] Name: Sarah Colvin Age: 28 yrs Sex: Female : 1995 Arrival Date: 07/10/2023 Time: 16:22 Bed 12 Private MD: Diagnosis: Chest pain, unspecified Presentation: 07/10 16:32 Chief complaint: Patient states: Pt c/o non-reproducible chest pain that radiates tl4 across chest since last night. Pt states she took Tums and was able to sleep, but pain has been continuous today. Pt also c/o nausea. Pt denies SOB, diaphoresis. Coronavirus screen: At this time, the client does not indicate any symptoms associated with coronavirus-19. Ebola Screen: No symptoms or risks identified at this time. Initial Sepsis Screen: Does the patient meet any 2 criteria? No. Patient's initial sepsis screen is negative. Does the patient have a suspected source of infection? No. Patient's initial sepsis screen is negative. Risk Assessment: Do you want to hurt yourself or someone else? Patient reports no desire to harm self or others. Onset of symptoms was July 09, 2023. 16:32 Method Of Arrival: Ambulatory tl4 16:32 Acuity: CHANDLER 3 tl4 Triage Assessment: 16:35 General: Appears in no apparent distress. Behavior is calm, cooperative. Pain: tl4 Complains of pain in chest. EENT: No deficits noted. No signs and/or symptoms were reported regarding the EENT system. Neuro: No deficits noted. Cardiovascular: Reports chest pain, nausea, Denies diaphoresis, lightheadedness, palpitations. Respiratory: No deficits noted. Denies cough, shortness of breath. GI: Reports nausea. : No deficits noted. No signs and/or symptoms were reported regarding the genitourinary system. Derm: No deficits noted. No signs and/or symptoms reported regarding the dermatologic system. Musculoskeletal: No deficits noted. No signs and/or symptoms reported regarding the musculoskeletal system. Historical: - Allergies: 16:34 Codeine; tl4 16:34 Iodine; tl4 - Home Meds: 16:34 Adderall XR 15 mg Oral Capsule, ER 24 hr [Active]; tl4 - PMHx: 16:34 ADHD; tl4 - Immunization history:: Adult Immunizations unknown. - Social history:: Smoking status: Patient denies any tobacco usage or history of. Screenin:05 [facility] ED Fall Risk Assessment (Adult) History of falling in the last 3 months, bp including since admission No falls in past 3 months (0 pts). Abuse screen: Denies threats or abuse. Denies injuries from another. Nutritional screening: No deficits noted. Tuberculosis screening: No symptoms or risk factors identified. Assessment: 19:30 General: SEE TRIAGE NOTE. bp 20:05 Reassessment: DC HOME AMBULATORY WITH FAMILY. bp Vital Signs: 16:32 BP 134 / 99; Pulse 101; Resp 18; Temp 98.6(O); Pulse Ox 100% on R/A; Weight 83.46 kg; tl4 Height 5 ft. 3 in. ; Pain 8/10; 20:04 BP 127 / 85; Pulse 87; Resp 16; Pulse Ox 100% ; bp 16:32 Body Mass Index 32.59 (83.46 kg, 160.02 cm) tl4 16:32 Pain Scale: Adult tl4 ED Course: 16:28 Patient arrived in ED. kj1 16:34 Triage completed. tl4 16:35 Arm band placed on right wrist. tl4 16:48 Fady Cerda PA is PHCP. cp 16:49 Chris Burnette MD is Attending Physician. cp 17:25 Missed attempt(s): 20 gauge in left antecubital area. bc6 17:35 Basic Metabolic Panel Sent. bc6 17:35 CBC with Diff Sent. bc6 17:35 LFT's Sent. bc6 17:35 Magnesium Sent. bc6 17:35 PT-INR Sent. bc6 17:35 Troponin HS Sent. bc6 17:35 Inserted saline lock: 20 gauge in right antecubital area, using aseptic technique. bc6 Blood collected. 17:52 XRAY Chest (1 view) In Process Unspecified. EDMS 19:04 Enmanuel Herr, RN is Primary Nurse. bp 20:05 Patient has correct armband on for positive identification. Provided Education on: N/A. bp Client placed on continuous cardiac and pulse oximetry monitoring. NIBP monitoring applied. 20:05 No provider procedures requiring assistance completed. IV discontinued, intact, bp bleeding controlled, No redness/swelling at site. Pressure dressing applied. Patient maintains SpO2 saturation greater than 95% on room air. Administered Medications: 17:31 Drug: Ketorolac IVP 15 mg IVP once Route: IVP; Site: right forearm; tl4 20:06 Follow up: Response: No adverse reaction bp Medication: 20:05 VIS not applicable for this client. bp Outcome: 19:46 Discharge ordered by . cp 20:05 Discharged to home ambulatory, bp 20:05 Condition: stable 20:05 Discharge instructions given to patient, Instructed on discharge instructions, follow up and referral plans. medication usage, Demonstrated understanding of instructions, follow-up care, medications, Prescriptions given X 2, 20:06 Patient left the ED. bp Signatures: Dispatcher [employer] EDMS Fady Cerda PA PA cp Peltier, Brian, RN RN Salma Lambert kj1 Chiquis Gonsales bc6 Tom Magana RN RN tl4
--- NOTE | 2023-07-10 19:47 | EDPHYS ---
Physician Documentation [facility] Name: Sarah Colvin Age: 28 yrs Sex: Female : 1995 Arrival Date: 07/10/2023 Time: 16:22 Bed 12 Private MD: ED Physician Chris Burnette HPI: 07/10 17:00 This 28 yrs old Female presents to ER via Ambulatory with complaints of Chest Pain. cp 17:00 The patient or guardian reports chest pain that is located primarily in the anterior cp chest wall, bilaterally. 17:00 The pain does not radiate. Associated signs and symptoms: Pertinent positives: nausea, cp Pertinent negatives: abdominal pain, diaphoresis, lower extremity pain, lower extremity swelling, near syncope, shortness of breath, syncope. 17:00 The chest pain is described as aching. Duration: The patient or guardian reports a cp single episode, that is still ongoing. Historical: - Allergies: 16:34 Codeine; tl4 16:34 Iodine; tl4 - Home Meds: 16:34 Adderall XR 15 mg Oral Capsule, ER 24 hr [Active]; tl4 - PMHx: 16:34 ADHD; tl4 - Immunization history:: Adult Immunizations unknown. - Social history:: Smoking status: Patient denies any tobacco usage or history of. ROS: 17:05 Cardiovascular: Positive for chest pain, Negative for edema, palpitations, cp 17:05 Eyes: Negative for injury, pain, redness, and discharge, cp 17:05 Constitutional: Negative for body aches, chills, fever, poor PO intake, 17:05 ENT: Negative for drainage from ear(s), ear pain, sore throat, difficulty swallowing, difficulty handling secretions, 17:05 Neck: Negative for pain with movement, pain at rest, stiffness, 17:05 Respiratory: Negative for cough, shortness of breath, wheezing, 17:05 Abdomen/GI: Negative for abdominal pain, vomiting, diarrhea, constipation, Exam: 16:43 ECG was reviewed by the Attending Physician. cp 17:08 Constitutional: The patient appears in no acute distress, alert, awake, cp non-diaphoretic, non-toxic, well developed, well nourished, 17:08 Head/Face: Normocephalic, atraumatic. cp 17:08 Eyes: Periorbital structures: appear normal, Conjunctiva: normal, no exudate, no injection, Sclera: no appreciated abnormality, Lids and lashes: appear normal, bilaterally, 17:08 ENT: External ear(s): are unremarkable, Nose: is normal, Mouth: Lips: moist, Oral mucosa: pink and intact, moist, Posterior pharynx: is normal, airway is patent, no erythema, no exudate, 17:08 Neck: ROM/movement: is normal, is supple, without pain, no range of motions limitations, 17:08 Chest/axilla: Inspection: normal, 17:08 Cardiovascular: Rate: tachycardic, Rhythm: regular, Edema: is not appreciated, JVD: is not appreciated, 17:08 Respiratory: the patient does not display signs of respiratory distress, Respirations: normal, no use of accessory muscles, no retractions, labored breathing, is not present, Breath sounds: are clear throughout, no decreased breath sounds, no stridor, no wheezing, 17:08 Abdomen/GI: Exam negative for discomfort, distension, guarding, Inspection: abdomen appears normal, 17:08 Back: pain, is absent, ROM is normal, 17:08 Neuro: Orientation: to person, place \T\ time. Mentation: is normal, Cerebellar function: cp is grossly normal, Motor: moves all fours, strength is normal, Sensation: is normal, Vital Signs: 16:32 BP 134 / 99; Pulse 101; Resp 18; Temp 98.6(O); Pulse Ox 100% on R/A; Weight 83.46 kg; tl4 Height 5 ft. 3 in. ; Pain 8/10; 20:04 BP 127 / 85; Pulse 87; Resp 16; Pulse Ox 100% ; bp 16:32 Body Mass Index 32.59 (83.46 kg, 160.02 cm) tl4 16:32 Pain Scale: Adult tl4 MDM: 16:49 Patient medically screened. cp 19:45 Data reviewed: vital signs, nurses notes, lab test result(s), EKG, radiologic studies, cp plain films, and as a result, I will discharge patient. 19:45 Differential diagnosis: abnormal EKG, acute myocardial infarction, cholecystitis, cp Cholelithiasis costochondritis, esophagitis, gastritis, pleurisy, pneumonia, pneumothorax. I considered the following discharge prescriptions or medication management in the emergency department Medications were administered in the Emergency Department. See MAR. Counseling: I had a detailed discussion with the patient and/or guardian regarding the historical points, exam findings, and any diagnostic results supporting the discharge/admit diagnosis, lab results, radiology results, to return to the emergency department if symptoms worsen or persist or if there are any questions or concerns that arise at home. Response to treatment: the patient's symptoms have markedly improved after treatment, and as a result, I will discharge patient. Special discussion: Based on the patient's history, exam, and Dx evaluation, there is no indication for emergent intervention or inpatient Tx. It is understood by the patient/guardian that if the Sx's persist or worsen they need to return immediately for re-evaluation. 07/10 16:50 Order name: Basic Metabolic Panel; Complete Time: 19:01 cp 07/10 19:01 Interpretation: Normal except: GFR 82. cp 07/10 16:50 Order name: CBC with Diff; Complete Time: 19:01 cp 07/10 16:50 Order name: LFT's; Complete Time: 19:01 cp 07/10 16:50 Order name: Magnesium; Complete Time: 19:01 cp 07/10 16:50 Order name: PT-INR; Complete Time: 19:01 cp 07/10 16:50 Order name: Troponin HS; Complete Time: 19:01 cp 07/10 16:50 Order name: Urine Microscopic Only; Complete Time: 19:01 cp 07/10 16:50 Order name: UDS; Complete Time: 19:01 cp 07/10 19:01 Interpretation: Normal except: METHAMPHETAMINE POSITIVE. cp 07/10 16:50 Order name: Test, Urine; Complete Time: 19:01 cp 07/10 16:50 Order name: XRAY Chest (1 view); Complete Time: 19:01 cp 07/10 16:50 Order name: EKG; Complete Time: 16:51 cp 07/10 16:50 Order name: Cardiac monitoring; Complete Time: 19:05 cp 07/10 16:50 Order name: EKG - Nurse/Tech; Complete Time: 18:13 cp 07/10 16:50 Order name: IV Saline Lock; Complete Time: 17:35 cp 07/10 16:50 Order name: Labs collected and sent; Complete Time: 17:35 cp 07/10 16:50 Order name: O2 Per Protocol; Complete Time: 18:13 cp 07/10 16:50 Order name: O2 Sat Monitoring; Complete Time: 18:13 cp EC:43 Rate is 91 beats/min. Rhythm is regular. FL interval is normal. QRS interval is normal. cp QT interval is normal. T waves are Inverted in lead aVR. Interpreted by me. Reviewed by me. Administered Medications: 17:31 Drug: Ketorolac IVP 15 mg IVP once Route: IVP; Site: right forearm; tl4 20:06 Follow up: Response: No adverse reaction bp Disposition Summary: 07/10/23 19:46 Discharge Ordered Notes: Location: Home cp Problem: new cp Symptoms: have improved cp Condition: Stable cp Diagnosis - Chest pain, unspecified cp Followup: cp - With: Private Physician - When: 2 - 3 days - Reason: Recheck today's complaints Discharge Instructions: - Discharge Summary Sheet cp - Nonspecific Chest Pain, Adult cp - Chest Wall Pain cp Forms: - Medication Reconciliation Form cp - Thank You Letter cp - Antibiotic Education cp - Prescription Opioid Use cp - Patient Portal Instructions cp - Leadership Thank You Letter cp Prescriptions: - Pepcid 20 mg Oral Tablet - take 1 tablet ORAL route every 12 hours for 10 days; 20 tablet; Refills: 0, cp Product Selection Permitted - Diclofenac Sodium 75 mg Oral tablet, delayed release (enteric coated) - take 1 tablet ORAL route 2 times per day; 20 tablet; Refills: 0, Product cp Selection Permitted Addendum: 07/14/2023 04:37 I was immediately available for consultation during this patient's visit. I did not e c2 personally see the patient or discuss the patient with the SOPHIA. . Signatures: Dispatcher [employer] Fady Mathis PA PA cp Chris Burnette MD MD ec2 Tom Magana RN RN tl4 Enmanuel Herr RN bp
[2023-07-10 20:52] VITALS: BP 127/85; TEMP 98.6; O2SAT 100
--- NOTE | 2023-07-14 14:43 | EKG ---
Test Date: 2023-07-10 Test Time: 16:36:52 Lugger: KATHY MEASUREMENT RESULTS: Intervals: Rate: 91 DC: 138 QRSD: 74 QT: 332 QTc: 408 [place]: P: 71 DC: 138 QRS: 81 T: 21 INTERPRETIVE STATEMENTS: Normal sinus rhythm with sinus arrhythmia Normal ECG No previous ECG available for comparison Electronically Signed On 07-14-23 14:31:45 RN RADIATION ONCOLOGY by John Johnson
== END ==
LOC: ER 16:22
DX: R07.9 Chest pain, unspecified (principal); R11.0 Nausea; Z88.5 Allergy status to narcotic agent; Z91.048 Other nonmedicinal substance allergy status
CPT/HCPCS: 36415; 71045; 80048; 80076; 80307; 81015; 81025; 83735; 84484; 85025; 85610; 93005